=== PATIENT | female | born 1975 | race Caucasian/White ===

== ENCOUNTER 2019-10-10 08:55 | Outpatient (CLI) | payer OTHER ==
--- NOTE | 2019-10-10 09:58 | MMO ---
Bilateral MAMMO Bilat Diag [facility]. CLINICAL HISTORY: Patient is 44 years old and is seen for diagnostic exam. The patient has no family history of breast cancer. The patient has no personal history of cancer. VIEWS: The views performed were: bilateral craniocaudal with tomosynthesis; bilateral mediolateral oblique with tomosynthesis; and bilateral mediolateral with tomosynthesis. FILMS COMPARED: The present examination has been compared to a prior imaging study performed at [facility] on 10/10/2019. This study has been interpreted with the assistance of computer-aided detection. MAMMOGRAM FINDINGS: There are scattered fibroglandular densities. Increased desnsity and suspicious calcs are seen in the left retroaerolar breast at site of suspicious mass on US. An intramammary lymph node is seen in the left upper outer breast. In the right breast, there are no suspicious masses, calcifications or areas of architectural distortion. IMPRESSION: FINDING IN THE LEFT BREAST IS HIGHLY SUGGESTIVE OF MALIGNANCY. AN ULTRASOUND-GUIDED BREAST BIOPSY IS RECOMMENDED. THE RESULTS OF THIS EXAM WERE SENT TO THE PATIENT. ACR BI-RADS Category 5 - Highly suggestive of malignancy - appropriate action should be taken MAMMOGRAPHY NOTE: 1. A negative mammogram report should not delay a biopsy if a dominant of clinically suspicious mass is present. 2. Approximately 10% to 15% of breast cancers are not detected by mammography. 3. Adenosis and dense breasts may obscure an underlying neoplasm. Reported by: JARRETT HALE MD Electonically Signed: [id number]
--- NOTE | 2019-10-10 10:22 | ULT ---
LEFT BREAST ULTRASOUND: HISTORY: A 44-year-old female with palpable mass at the 12 o'clock position of the left breast. FINDINGS: Correlation is made with mammogram of the same date. There is an irregular shadowing mass at the 12 o'clock position of the left breast in the region of p alpable concern measuring 2.8 x 3.1 x 3.1 cm. There are enlarged lymph nodes in the axilla measuring up to 2.8 cm. IMPRESSION: BIRADS category 5: highly suggestive of malignancy. Recommend ultrasound-guided biopsy. Discussed in person with the patient at 9:50 a.m. CEE DAILEY
== END 2019-10-10 08:56 | disposition home or self-care (01) ==
LOC: BICMAMMO 08:55
PROVIDERS: ATTEND Family Medicine
DX: N63.22 Unspecified lump in the left breast, upper inner quadrant (principal)
CPT/HCPCS: 77066; G0279

== ENCOUNTER → 2019-10-18 | Day surgery (SDC) | payer OTHER ==
--- NOTE | 2019-10-18 12:18 | MMO ---
FILMS COMPARED: The present examination has been compared to a prior imaging study performed at [facility] on 10/10/2019. MAMMOGRAM FINDINGS: There are scattered fibroglandular densities. A biopsy clip is seen in the left breast. IMPRESSION: FINDING IN THE LEFT BREAST IS CONFIRMED UTILIZING POST PROCEDURE MAMMOGRAM. Reported by: OLLIE SEGOVIA MD Electonically Signed: [id number]
--- NOTE | 2019-10-18 13:17 | ULT ---
Exam: Ultrasound guided left axillary biopsy HISTORY: Lymphadenopathy. Left breast mass. COMPARISON: 10/10/2019 FINDINGS: Successful fine-needle aspiration of 2 separate lymph nodes in the left axilla. Tissue was placed directly in formalin. TECHNIQUE: Consent obtained to perform a fine-needle aspiration of enlarged left axillary lymph nodes . Left axilla was prepped and draped in a sterile fashion. 1% lidocaine, buffered with sodium bicarbonate was used for local anesthesia. Under ultrasound guidance, a 20-gauge Franseen needle was used to perform a fine-needle aspiration of 2 separate enlarged left axillary lymph nodes. Tissue was placed directly in formalin. Patient tolerated the procedure well. No immediate or postprocedure IMPRESSION: 1. Successful ultrasound-guided fine-needle aspiration of 2 separate enlarged left axillary lymph nod es. Final pathologic diagnosis pending.
--- NOTE | 2019-10-18 13:20 | ULT ---
Exam: Ultrasound guided left breast biopsy. HISTORY: Left breast mass. COMPARISON: 10/10/2019 FINDINGS: Successful left breast ultrasound guided biopsy at the 12:00 and 2:00 position. 2 14-gauge core biopsy samples were obtained in the left 12:00 retroareolar position. 3 14-gauge core biopsies were obtained at the left breast 2:00 position. Biopsy clip were placed. A ribbon-shaped clip was delores keila at the 2:00 position and is shaped clip was placed at the 12:00 retroareolar position. TECHNIQUE: Consent obtained to perform an ultrasound guided biopsy of the left breast. Left breast wa s prepped and draped in a sterile fashion. 1% lidocaine, buffered with sodium bicarbonate was used for local anesthesia. Under sonographic guidance, 3, 14-gauge core biopsy samples were obtained in th e lesion at the 2:00 position. Samples were placed directly in formalin. Under sonographic guidance, 2, 14-gauge core biopsy cells were obtained in the retroareolar region at the 12:00 positio n. Samples were placed directly in formalin. Biopsy clip for place. Postbiopsy mammogram was performed. Patient tolerated the procedure well. No immediate or postprocedural complications IMPRESSION: 1. Successful ultrasound-guided biopsy of a retroareolar mass at the 12:00 position. 2. Successful ultrasound-guided biopsy of a solid mass at the 2:00 position.
== END ==
LOC: BICULT 10:41
PROVIDERS: ATTEND Family Medicine
PROC: BH41ZZZ Ultrasonography of Left Breast (ICD-10-PCS; principal; 2019-10-18)
PROC: 0WJF3ZZ Inspection of Abdominal Wall, Percutaneous Approach (ICD-10-PCS; principal; 2019-10-18)
PROC: 0H9U3ZX Drainage of Left Breast, Percutaneous Approach, Diagnostic (ICD-10-PCS; principal; 2019-10-18)
DX: C50.812 Malignant neoplasm of overlapping sites of left female breast (principal); C50.412 Malignant neoplasm of upper-outer quadrant of left female breast; Z17.0 Estrogen receptor positive status [ER+]
CPT/HCPCS: 19083; 38505; 88305